=== PATIENT | male | born 1990 | race Caucasian/White ===

== ENCOUNTER 2021-08-20 05:23 | Observation (INO) | payer OTHER, SELFPAY ==
[2021-08-20] VITALS (11 sets, daily range): BP systolic 112–150; BP diastolic 70–101; PULSE 57–95; RESP 10–20; TEMP 36.4–37.2; O2SAT 93–100; BMI 29.9
--- NOTE | ~2021-08-20 | CT_ITS ---
EXAMINATION: CT abdomen pelvis w con INDICATION: Right lower quadrant TECHNIQUE: Computed tomographic images of the abdomen and pelvis were obtained after the administrati on of 100 cc of Omnipaque 350 intravenous contrast. The dose-length product (DLP) was 898.56 mGy-cm. Automated exposure control and iterative reconstruction technique were employed. COMPARISON: None available FINDINGS: Minimal dependent atelectasis is present in the lung bases. The heart size is normal. The l iver, spleen, pancreas, gallbladder, and adrenal glands are normal. The kidneys are unremarkable. No pathologically enlarged abdominal or pelvic lymph nodes are identified. There is no free intraperiton eal gas or evidence of bowel obstruction. The dilated appendix measures up to 12 mm. There is [place] us stranding of the periappendiceal fat. A small amount of periappendiceal fluid is identified which tracks into the pelvis. There is no evidence of perforation or abscess. IMPRESSION: 1. Acute appendicitis. These findings were discussed with Dr. Cathy Rodriguez MD in the Emergency Depart ment at 0647 hours on 08/20/2021. Reviewed, dictated and finalized at location A. IMPRESSION: 1. Acute appendicitis. These findings were discussed with Dr. Catyh Rodriguez MD i the Emergency Department at 0647 hours on 08/20/2021.
--- NOTE | 2021-08-20 05:33 | ED.ABDPAIN ---
HPI - Abdominal Pain General Chief Complaint: Abdominal Pain Stated Complaint: abd pain Time Seen by Provider: 08/20/21 05:28 History of Present Illness HPI narrative: 31-year-old male who is presenting here with 3 days of right lower quadrant pain and diarrhea, he states initially he thought that it was food poisoning however over the last few days his pain is only been getting worse, so his told him to come in. He denies any fevers or chills, nausea or vomiting, no history of kidney stones or pain on urination. Related Data Allergies Allergy/AdvReac Type Severity Reaction Status Date / Time Penicillins AdvReac Unknown vomiting Verified 08/20/21 05:25 Review of Systems Review of Systems: All systems reviewed & are unremarkable except as noted in HPI and below Exam Narrative: EXAMINATION OF ORGAN SYSTEMS/BODY AREAS: Constitutional: Vital signs per nursing GENERAL:[No acute distress, non-toxic appearing.] HEAD: Normal with no signs of head trauma. EYES: EOMI, conjunctiva normal ENT: Hearing grossly intact LUNGS: Nonlabored breathing. HEART: [Regular rate and rhythm] ABD: [Soft], [tender to palpation RLQ] EXT: Normal range of motion SKIN: [No rashes or lesions.] NEURO: [Alert and oriented x 3. No gross focal sensory or strength deficits.] PSYCH: Normal affect Course Course Emergency Course: 31-year-old male presenting with right lower quadrant pain and diarrhea that is been worsening over the last few days, some chills, vital signs stable here, exam shows mild right lower quadrant tenderness but otherwise soft, differential includes appendicitis, gastroenteritis. Labs unremarkable, however on CT he does have appendicitis, case discussed with surgeon Dr. Mark who is agreeable for taking patient to OR and admission; started on antibiotics and made NPO. Patient updated on findings and agreeable with plan. Vital Signs Vital signs: Vital Signs Temperature 97.8 F 08/20/21 05:23 Pulse Rate 94 08/20/21 05:23 Respiratory Rate 18 08/20/21 05:23 Blood Pressure 150/101 H 08/20/21 05:23 Pulse Oximetry 99 08/20/21 05:23 Temperature 97.8 F 08/20/21 05:23 Pulse Rate 94 08/20/21 05:23 Respiratory Rate 18 08/20/21 05:23 Blood Pressure 150/101 H 08/20/21 05:23 Pulse Oximetry 99 08/20/21 05:23 MDM - Abdominal Pain Lab Data Result diagrams: 08/20/21 05:44 08/20/21 05:44 Labs: Lab Results 08/20/21 08/20/21 08/20/21 Range/Units 05:44 05:44 06:59 WBC 7.4 (4.5-10.0) K/mm3 RBC 5.42 (4.6-6.20) M/mm3 Hgb 16.5 (14.0-18.0) g/dL Hct 49.4 (42.0-52.0) % MCV 91.1 (80-100) fl MCH 30.4 (26-34) pg MCHC 33.4 (32-36) g/dl RDW 12.1 (11.5-14.5) % Plt Count 180 (150-375) k/mm3 MPV 9.6 (7.4-10.4) fl Immature Gran % (Auto) 0.3 (0-0.5) % Neut % (Auto) 61.2 (45.5-73.1) % Lymph % (Auto) 26.7 (18.3-44.2) % [place] % (Auto) 10.6 H (2.6-8.5) % Eos % (Auto) 0.7 (0-4.4) % Baso % (Auto) 0.5 (0.2-1.2) % Lymph # (Auto) 1.96 (0.9-3.2) K/mm3 [place] # (Auto) 0.8 H (0.1-0.6) K/mm3 Eos # (Auto) 0.1 (0-0.3) K/mm3 Baso # (Auto) 0.0 (0.0-0.1) K/mm3 Abs Immat Gran (auto) 0.02 (0.00-0.031) K/mm3 Absolute Neuts (auto) 4.5 (1.3-6.7) K/mm3 Absolute Nucleated RBC 0.0 (0.0-0.012) K/mm3 Nucleated RBC % 0.0 (0.0-0.2) % PT Pending INR Pending APTT Pending Sodium 136 L (137-145) mmol/L Potassium 4.3 (3.4-5.0) mmol/L Chloride 102 (98-107) mmol/L Carbon Dioxide 27 (22-30) mmol/L Anion Gap 7 L (8-16) mmol/L BUN 12 (9-20) mg/dL Creatinine 1.00 (0.7-1.3) mg/dL Estim Creat Clear Calc 117 ml/min Estimated GFR > 60 (59 - ) Glucose 108 (65-110) mg/dL Calcium 9.4 (8.4-10.2) mg/dL Total Bilirubin 1.2 (0.2-1.3) mg/dL AST 34 (17-59) U/L ALT 34 (6-50) U/L Alkaline Phosphatase 71 (38-126) U/L Total Protein 8.
[2021-08-20 05:49] LABS: Basophils Percent Auto 0.5 % (0.2-1.2); Eosinophils Absolute Auto 0.1 K/mm3 (0-0.3); Eosinophils Percent Auto 0.7 % (0-4.4); Hematocrit 49.4 % (42.0-52.0); Hemoglobin 16.5 g/dL (14.0-18.0); Immature Granulocyte Absolute 0.02 K/mm3 (0.00-0.031); Immature Granulocyte Percent A 0.3 % (0-0.5); Lymphocytes Absolute Auto 1.96 K/mm3 (0.9-3.2); Lymphocytes Percent Auto 26.7 % (18.3-44.2); Mean Corpuscular HGB Conc 33.4 g/dl (32-36); Mean Corpuscular Hemoglobin 30.4 pg (26-34); Mean Corpuscular Volume 91.1 fl (80-100); Mean Platelet Volume 9.6 fl (7.4-10.4); Monocytes Absolute Auto 0.8 K/mm3 (0.1-0.6); Monocytes Percent Auto 10.6 % (2.6-8.5); Neutrophils Absolute Auto 4.5 K/mm3 (1.3-6.7); Neutrophils Percent Auto 61.2 % (45.5-73.1); Platelet Count Result 180 k/mm3 (150-375); Red Blood Count 5.42 M/mm3 (4.6-6.20); Red Cell Distribution Width 12.1 % (11.5-14.5); White Blood Count 7.4 K/mm3 (4.5-10.0)
[2021-08-20 06:03] LABS: Alanine Aminotransferase 34 U/L (6-50); Albumin Level 4.8 g/dL (3.5-5.1); Alkaline Phosphatase 71 U/L (38-126); Anion Gap 7 mmol/L (8-16); Aspartate Amino Transferase 34 U/L (17-59); Bilirubin,Total 1.2 mg/dL (0.2-1.3); Blood Urea Nitrogen 12 mg/dL (9-20); Calcium 9.4 mg/dL (8.4-10.2); Carbon Dioxide 27 mmol/L (22-30); Chloride 102 mmol/L (98-107); Estimated CRCL calculation 117 ml/min; Estimated Glomerular Filt Rate > 60; Glucose 108 mg/dL (65-110); Potassium 4.3 mmol/L (3.4-5.0); Sodium 136 mmol/L (137-145)
[2021-08-20] MEDS: LACTATED RINGERS 1,000 ML 999 ML IV CONT (07:14)
[2021-08-20 07:17] LABS: INR 1.1; Prothrombin Time 14.2 Seconds (11.1-14.7)
[2021-08-20 07:18] LABS: Partial Thromboplastin Time 29.8 SECONDS (22.3-36.8)
--- NOTE | 2021-08-20 09:49 | PM.IMHP ---
H&P: HPI History of Present Illness Date/Time: 08/20/21 09:49 Pt is a 31 y/o M presenting to ED c/o RLQ abd pain over last few days. Pt reports pain was initially more diffuse and mild in nature, but has progressively become more localized and severe in RLQ. Pt reports pain is dull and constant, but worsens c movt. Pt also c/o diarrhea and decreased appetite. Pt denies f/c, N/V. Pt denies previous episodes. Chief Complaint: acute appendicitis Review of Systems Constitutional: Constitutional: Reports as per HPI, Denies anorexia, Denies body ache(s), Denies chills, Reports fatigue, Denies fever(s), Denies headache(s), Denies increased appetite, Denies lethargy, Denies malaise, Reports poor appetite, Denies weakness, Denies weight gain and Denies weight loss Eyes: Eyes: Reports no additional eye complaints ENT: Reports system reviewed and no additional complaints, except as documented Cardiovascular: Cardiovascular: Reports no additional cardiovascular complaints Respiratory: Respiratory: Reports no additional respiratory complaints Gastrointestinal: Gastrointestinal: Reports as per HPI, Reports abdominal pain, Denies bloating, Denies constipation, Reports GI cramping, Denies fecal incontinence, Reports diarrhea, Reports loose stools, Denies nausea and Denies vomiting Genitourinary: Genitourinary: Reports no additional male genitourinary complaints Musculoskeletal: Musculoskeletal: Reports no additional musculoskeletal complaints Integumentary/Breasts: Skin/Breast: Reports system reviewed and no additional complaints, except as docu Neurologic: Reports system reviewed and no additional complaints, except as documented Psychiatric: Psychiatric: Reports no additional psychiatric complaints Endocrine: Endocrine: Reports no additional endocrine complaints Hematologic/Lymphatic: Hematologic/Lymphatic: Reports no additional hematologic/lymphatic complaints Allergic/Immunologic: Allergic/Immunologic: Reports no additional allergic/immunologic complaints PMFSH Comments PMH - none Surgical history - open RIH FH - no CRC, IBD SH - denies tobacco, illicit drug use Meds Home Medications and Allergies Allergies Allergy/AdvReac Type Severity Reaction Status Date / Time Penicillins AdvReac Unknown vomiting Verified 08/20/21 05:25 Vital Signs Vital Signs - 24 hr 08/20/21 05:23 08/20/21 08:32 Temperature 36.6 C Pulse Rate 94 63 Respiratory Rate 18 16 Blood Pressure 150/101 H 142/91 H Pulse Oximetry 99 98 Exam Const: General: cooperative, comfortable and acute distress mild Nutritional Appearance: obese Orientation/consciousness: patient oriented x3 Limitations: no limitations HENMT: Head: normal to inspection and normocephalic Ears: hearing grossly normal bilaterally General nose exam: Normal external nose present Face and sinus: normal facial exam Mouth: Yes Normal oral and palatal mucosa present and Yes moist mucous membranes Throat: posterior oropharynx normal Eyes: General: appearance normal, both eyes and all related structures Pupils: Equal, round and reactive pupils present EOM: EOMs intact bilaterally Neck: Neck: normal visual inspection, full ROM and no lymphadenopathy Chest: Chest palpation & inspection: normal inspection of the chest Resp: Effort & Inspection: normal respiratory effort Auscultation: clear to auscultation bilaterally Cardio: Jugular venous distension: no JVD Rate: regular rate Rhythm: regular rhythm GI: Inspection: normal to inspection, non-distended and no incisions GI Palp: Yes Soft to palpation, Yes Tenderness to palpation present (GI), Yes Guarding due to palpation present (GI) and No Rigid due to palpation Other: focal TTP RLQ Skin: General skin exam: normal color and no rashes or lesions noted Neuro: General: oriented to person, oriented to place, oriented to time and CN's II-XI intact bilaterally Extrem: General: normal to inspection and full ROM Psych: Appeara
--- NOTE | 2021-08-20 11:08 | ADMGEN ---
This patient, David Parra, was admitted to 3 [facility] Surg Room 307-01. Patient/family oriented to hospital policies and general routines including ID bracelet, bed and alarms, visiting hours, pain management, procedures, bathroom and other care routines, personal items, smoking policy, room service/diet, and visiting hours. Information on how to activate the Rapid Response Team has been discussed. Patient/Family are encouraged to report perceived risks to care and to ask questions if they do not understand what they are told or what they should do.
--- NOTE | 2021-08-20 13:16 | WPDANESEPPF ---
Anes - Initial Pre Proc Eval Procedure: Operation Date: 08/20/21 15:00 Proposed Procedures p Laparoscopic Appendectomy - Shonda Mark MD Date/Time: 08/20/21 13:16 Surgeon: Shonda Mark MD Pre Op Diagnosis: Appendicitis Patient Data Age: 31 Gender: M Height: 1.83 m Weight: 100 kg Last Vital Signs Temp 36.4 C 08/20/21 13:02 Pulse 86 08/20/21 13:02 Resp 18 08/20/21 13:02 BP 133/85 08/20/21 13:02 Pulse Ox 96 08/20/21 13:02 Allergies Allergy/AdvReac Type Severity Reaction Status Date / Time Penicillins AdvReac Unknown vomiting Verified 08/20/21 11:02 Home Medications Medication Instructions Recorded Confirmed Type No Home Medications 08/20/21 08/20/21 History Laboratory Tests 08/20/21 08/20/21 08/20/21 05:44 05:44 06:59 WBC 7.4 K/mm3 K/mm3 (4.5-10.0) RBC 5.42 M/mm3 M/mm3 (4.6-6.20) Hgb 16.5 g/dL g/dL (14.0-18.0) Hct 49.4 % % (42.0-52.0) MCV 91.1 fl fl (80-100) MCH 30.4 pg pg (26-34) MCHC 33.4 g/dl g/dl (32-36) RDW 12.1 % % (11.5-14.5) Plt Count 180 k/mm3 k/mm3 (150-375) MPV 9.6 fl fl (7.4-10.4) Immature Gran % (Auto) 0.3 % % (0-0.5) Neut % (Auto) 61.2 % % (45.5-73.1) Lymph % (Auto) 26.7 % % (18.3-44.2) [place] % (Auto) 10.6 % H % (2.6-8.5) Eos % (Auto) 0.7 % % (0-4.4) Baso % (Auto) 0.5 % % (0.2-1.2) Lymph # (Auto) 1.96 K/mm3 K/mm3 (0.9-3.2) [place] # (Auto) 0.8 K/mm3 H K/mm3 (0.1-0.6) Eos # (Auto) 0.1 K/mm3 K/mm3 (0-0.3) Baso # (Auto) 0.0 K/mm3 K/mm3 (0.0-0.1) Abs Immat Gran (auto) 0.02 K/mm3 K/mm3 (0.00-0.031) Absolute Neuts (auto) 4.5 K/mm3 K/mm3 (1.3-6.7) Absolute Nucleated RBC 0.0 K/mm3 K/mm3 (0.0-0.012) Nucleated RBC % 0.0 % % (0.0-0.2) PT 14.2 Seconds Seconds (11.1-14.7) INR 1.1 APTT 29.8 SECONDS SECONDS (22.3-36.8) Sodium 136 mmol/L L mmol/L (137-145) Potassium 4.3 mmol/L mmol/L (3.4-5.0) Chloride 102 mmol/L mmol/L (98-107) Carbon Dioxide 27 mmol/L mmol/L (22-30) Anion Gap 7 mmol/L L mmol/L (8-16) BUN 12 mg/dL mg/dL (9-20) Creatinine 1.00 mg/dL mg/dL (0.7-1.3) Estim Creat Clear Calc 117 ml/min ml/min Estimated GFR > 60 (59 - ) Glucose 108 mg/dL mg/dL (65-110) Calcium 9.4 mg/dL mg/dL (8.4-10.2) Total Bilirubin 1.2 mg/dL mg/dL (0.2-1.3) AST 34 U/L U/L (17-59) ALT 34 U/L U/L (6-50) Alkaline Phosphatase 71 U/L U/L (38-126) Total Protein 8.0 g/dL g/dL (6.3-8.2) Albumin 4.8 g/dL g/dL (3.5-5.1) Blood Type Antibody Screen 08/20/21 06:59 WBC RBC Hgb Hct MCV MCH MCHC RDW Plt Count MPV Immature Gran % (Auto) Neut % (Auto) Lymph % (Auto) [place] % (Auto) Eos % (Auto) Baso % (Auto) Lymph # (Auto) [place] # (Auto) Eos # (Auto) Baso # (Auto) Abs Immat Gran (auto) Absolute Neuts (auto) Absolute Nucleated RBC Nucleated RBC % PT INR APTT Sodium Potassium Chloride Carbon Dioxide Anion Gap BUN Creatinine Estim Creat Clear Calc Estimated GFR Glucose Calcium Total Bilirubin AST ALT Alkaline Phosphatase Total Protein Albumin Blood Type A Positive Antibody Screen Negative Patient hx anesthesia problems: none Family hx anesthesia problems: none Results Review: All pre-operative results and documents have been reviewed as part of the pre-operative evalua
[2021-08-20] MEDS: LACTATED RINGERS 1,000 ML 30 ML IV CONT ×2 (13:28→14:31)
[2021-08-20] MEDS: fentaNYL CITRATE INJ (*CRX) 100 MCG/2 ML VIAL 50 MCG IV PUSH (13:33)
--- NOTE | 2021-08-20 13:41 | WPDHPUPDATE1 ---
History and Physical Update Update Date/Time: 08/20/21 13:41 History and Physical has been reviewed, including an updated exam of the patient. There are NO changes in the patient's condition. Risks, benefits, and alternatives have been discussed and questions answered. Patient agrees to proceed with procedure.
--- NOTE | 2021-08-20 13:47 | W.PM.PROC2 ---
Procedure Note - Detailed Date of Procedure 08/20/21 Pre-op Diagnosis Appendicitis Post-op Diagnosis Same Procedure Performed laparoscopic appendectomy Surgeon Shonda Mark MD Anesthesia General Indications 31-year-old male presenting to the emergency department with acute appendicitis Findings acute appendicitis no evidence of perforation Description of Procedure The patient was taken to the operating room and placed in the supine position. After adequate induction of general anesthesia, the patient was prepped and draped in the normal sterile fashion. A time-out was then done to verify the patient's identity, as well as the procedure being performed. I began by making a 5 mm incision in the infraumbilical region, through this a Veress needle was placed in the peritoneal cavity. CO2 gas was then insufflated and after adequate pneumoperitoneum was achieved the Veress needle was removed. Then placed a 5 mm Optiview trocar under direct visualization into the peritoneal cavity. I then insufflated through this trocar site and the endoscope was placed into the trocar. Under direct visualization, placed 2 further 5 mm suprapubic port as well as an additional 12 mm port in the left lower abdomen. At this point identified the cecum, I retracted the cecum both medially and superiorly allowing me to expose the appendix. The appendix was noted to be very dilated and inflamed especially towards the tip. The appendix was noted to be very adherent to the right lateral sidewall as well as the ileum. I was able to bluntly dissect the appendix from these adhesions. I then was able to locate the base of the appendix with the cecum. I created a window with the [place] dissector between the appendix itself and the mesoappendix. I then transected the mesoappendix with a white vascular staple load. The Endo-TERRY was then reloaded with a blue staple load and I transected the base of the appendix. Once the specimen was completely detached, an endo-pouch was placed into the 12 mm port site and the specimen was removed through the endo-pouch. The appendiceal specimen will be sent to pathology for further review. I then copiously irrigated the right lower quadrant. Hemostasis was noted at both staple lines no other pathology was seen in this area. I then moved the camera to the suprapubic port to check our its port of entry. No iatrogenic injury or other pathology was noted in the upper abdomen. I then closed the 12 mm port site with a Miah code and 0 Vicryl suture under direct visualization. At this point, the abdomen was desufflated and all ports were removed. All port sites were closed with 4 Monocryl subcuticular suture. Dermabond was placed on all wounds. The patient tolerated the procedure well and was extubated in the operating room postop. He will be sent to the recovery room in stable condition. Estimated Blood Loss 5 Drains No Packing No Pathology Yes Complications No immediate complications Condition Stable Disposition PACU
[2021-08-20] MEDS: fentaNYL CITRATE INJ (*CRX) 100 MCG/2 ML VIAL 25 MCG IV PUSH ×3 (15:07→15:24)
--- NOTE | 2021-08-21 07:48 | WPDANESPN ---
Anes - Prog Note Post-Op Date/Time: 08/21/21 07:48 Vital Signs: Last Vital Signs Temp 37.2 C 08/20/21 15:57 Pulse 95 08/20/21 15:57 Resp 16 08/20/21 15:57 BP 128/84 08/20/21 15:57 Pulse Ox 93 08/20/21 15:57 Pain Score (VAS): 04/19 I/O: Intake & Output 08/20/21 08/20/21 08/21/21 15:59 23:59 07:59 Intake Total 1800 240 Output Total 650 Balance 1800 -410 Laboratory Tests 08/20/21 05:44 08/20/21 05:44 08/20/21 06:59 Blood Type A Positive Antibody Screen Negative Patient Feedback: Patient satisfied with anesthetic care.
--- NOTE | 2021-08-24 15:00 | PM.DS ---
DS: Admitting Diagnosis Discharge Date 08/20/21 Admitting Diagnosis Acute appendicitis DS: Discharge Diagnosis Discharge Diagnosis (1) Acute appendicitis: Code(s): K35.80 - Unspecified acute appendicitis Status: Acute Assessment and Plan: doing well, continue routine postoperative care, prescription sent for [place] and Colace, follow-up 2 weeks DS: Summary Hospital Course Reason for hospitalization: acute appendicitis Hospital Course: 31-year-old male presenting to the emergency department complaint right lower quadrant abdominal pain. Workup in the emergency department, including CT scan, significant for acute appendicitis. The patient was subsequently admitted to my service, made NPO, and started on IV Zosyn. Upon evaluation, decision was made for urgent appendectomy. The patient brought to the operating room and laparoscopic appendectomy was performed, please see full operative report for details of that procedure. Postoperatively, the patient did well and was transferred back to the floor. He was able to tolerate a diet and was up and ambulating without issue. His pain was well controlled with p.o. analgesia. He will now be sent home with p.o. analgesia and Colace. He will follow up with me in 2 weeks. Status at Discharge Functional status at discharge: independent ambulation Overall status at discharge: patient is progressing back to baseline Time Spent with Patient Time attestation: Total time spent providing and/or coordinating discharge services: Time spent: Less than 30 minutes Exam Const: General: cooperative, comfortable and no acute distress Resp: Auscultation: clear to auscultation bilaterally Cardio: Rate: regular rate Rhythm: regular rhythm GI: Inspection: normal to inspection, distended and incision GI Palp: Yes abdominal tenderness, Yes Tenderness to palpation present (GI), No Guarding due to palpation present (GI) and No Rigid due to palpation DS: Data Data Completed and Pending Completed studies during hospitalization: Pending at discharge 08/20/21 14:02 Surgical [PTH] Routine Discharge Plan Discharge Attending physician on discharge: Shonda Mark Consulting providers: Dale Sanders ; Joseph Narayanan Discharging Clinician: Shonda Mark Anticipated Discharge Date/Time: 08/20/21 18:00 Patient Disposition: Home, Self-Care Activity: other - see discharge instructions Diet: other - see discharge instructions Wound Care Instructions: follow printed instructions Discharge Instructions: DISCHARGE INSTRUCTION SHEET FOR HERNIA, GALLBLADDER AND APPENDIX SURGERIES DR. MARK PATIENT TO TAKE HOME 1. May shower in 24 hours, no soaking in bath x 2weeks. 2. Call office for: Wound increasingly painful or bleeding Vomiting Fever of greater than 101 degrees 3. If no bowel movement for three days, take 1 oz. (30 ml) Milk of Magnesia or MiraLax 17g 1 to 2 times daily. 4. No heavy lifting > 10-15 pounds x 6 weeks for hernia repairs and 2 weeks for laparoscopic cholecystectomy or appendectomy. 5. No driving for 3 days or while taking narcotic pain medications. 6. Ice to surgical site for 48 hours (30 min on, then 30 min off). 7. Up walking 10-30 minutes three times per day. 8. Resume previous home medications. 9. Follow-up 10-14 days in office for wound check or as previously scheduled. ([phone]) 10. Oral pain medications prescription to be sent to pharmacy. Take Tylenol 500mg every 6 hours and Ibuprofen 600mg every 6 hours for the first 2 days, then as needed. 11. NUTRITION: Start out by drinking fluids and increase your diet as tolerated. If you experience nausea, try dry toast, crackers, and 7-UP. If nausea or vomiting persists, contact your surgeon?s office. 12. Gallbladders-Low Fat Diet for 2 weeks (send care note of low fat diet) 13. Inguinal Hernias-wear scr
== END 2021-08-20 18:10 | disposition home or self-care (01) ==
LOC: ANHED 07:00 → ANH3MEDSUR 07:54
PROVIDERS: Admitting Provider Surgery; Emergency Provider Emergency Medicine; PCP Physician Assistant; Visit Provider Surgery
PROC: 0DTJ4ZZ Resection of Appendix, Percutaneous Endoscopic Approach (ICD-10-PCS; CPT 44970; principal; 2021-08-20 15:00)
DX: K35.32 Acute appendicitis with perforation, localized peritonitis, and gangrene, without abscess (principal); K38.2 Diverticulum of appendix
CPT/HCPCS: 44970; 36415; 74177; 80053; 85025; 85610; 85730; 86850; 86900; 86901; 88304; 96365; 99285; G0378; J0330; J1100; J2250; J2405; J2543; J2704; J2710; J3010; J7030; J7120; Q9967